=== PATIENT | female | born 1955 | race Caucasian/White ===

== ENCOUNTER 2023-05-18 19:50 | Inpatient (IN) | payer MEDICARE, MEDICAID ==
[~2023-05-18] VITALS: Ht 157 cm; Wt 76.2 kg
[~2023-05-18 19:50] MED LIST: ASP81TEC PO; ATEN25TA; CHOLESTROL MED; CIPR500T5 PO; CLON0.5T4 PO; DICL75TA2 PO; FLUT16SP22 NS; HYDR1TAB PO; LEVO100T7 PO; LEVO500T2 PO; LISI1TAB44 PO; LISI1TAB48 PO; MESA800T PO; METR-145 PO; METR500T PO; NAPR550T PO; ONDN4T PO; ORPH100T PO; PANT40TA2 PO; PRAV40TA2 PO; PROM25TA14 PO
[2023-05-18 20:29] LABS: BASOPHILS # (AUTO) 0.1 10^3/uL (0.0-0.1); BASOPHILS % (AUTO) 0 % (0-10); EOSINOPHILS % (AUTO) 0 % (0-10); HEMATOCRIT 42 % (35-52); HEMOGLOBIN 15.1 g/dL (11.5-16.0); LYMPHOCYTES # (AUTO) 0.8 10^3/uL (1.0-4.0); LYMPHOCYTES % (AUTO) 5 % (12-44); MEAN CORPUSCULAR HEMOGLOBIN 34 pg (25-34); MEAN CORPUSCULAR HGB CONC 36 g/dL (32-36); MEAN CORPUSCULAR VOLUME 94 fL (80-99); MEAN PLATELET VOLUME 9.6 fL (9.0-12.2); MONOCYTES % (AUTO) 6 % (0-12); NEUTROPHILS # (AUTO) 15.5 10^3/uL (1.8-7.8); NEUTROPHILS % (AUTO) 89 % (42-75); PLATELET COUNT 297 10^3/uL (130-400); WHITE BLOOD COUNT 17.4 10^3/uL (4.3-11.0)
[2023-05-18] MEDS ORDERED: LACTATED RINGERS 1,000 ML 1,000 ML IV ONE (20:30)
[2023-05-18] MEDS ORDERED: ONDANSETRON INJECTION 4 MG/2 ML (SDV) IVP ONE (20:30)
[2023-05-18 20:53] LABS: BAND NEUTROPHILS 1 %; EOSINOPHILS % (MANUAL) 1 %; LYMPHOCYTES % (MANUAL) 7 %; MONOCYTES % (MANUAL) 5 %; NEUTROPHILS % (MANUAL) 86 %
[2023-05-18 20:54] LABS: ALANINE AMINOTRANSFERASE 24 U/L (0-55); ALBUMIN 4.1 GM/DL (3.2-4.5); ALKALINE PHOSPHATASE 66 U/L (40-136); AMYLASE 162 U/L (25-125); BILIRUBIN,TOTAL 0.6 MG/DL (0.1-1.0); BUN/CREATININE RATIO 13; CALCIUM 9.2 MG/DL (8.5-10.1); CARBON DIOXIDE 22 MMOL/L (21-32); CHLORIDE 102 MMOL/L (98-107); CREATININE SERUM 0.75 MG/DL (0.60-1.30); GFR ESTIMATED 87; GLUCOSE 167 MG/DL (70-105); LIPASE 30 U/L (8-78); MAGNESIUM 2.3 MG/DL (1.6-2.4); PLATELET ESTIMATE ADEQUATE; RBC MORPH NORMAL; SODIUM 134 MMOL/L (135-145); TOTAL PROTEIN 6.7 GM/DL (6.4-8.2)
[2023-05-18 20:56] LABS: POTASSIUM 2.4 MMOL/L (3.6-5.0)
[2023-05-18] MEDS ORDERED: D5 1/2NS + KCL 40 MEQ/L 1000ML 1,000 ML IV SCH (21:00)
--- NOTE | 2023-05-18 21:08 | ED GI ---
General Chief Complaint: Abdominal/GI Problems Stated Complaint: ABDOMINAL PAIN VOMITING Nursing Triage Note: TO ED VIA POV AND AMBULATORY TO ROOM 7. PT STATES, "I HAVE SHIT RUNNING DOWN MY LEG. I NEED A BLANKET I'M COLD". PT AMBULATES INTO ROOM AND THROWS HERSELF DOWN ON THE BED. PT STATES, "THEY TOLD ME I HAVE GASTROENTERITIS, BUT I'M JUST NOT BETTER!" PT IS VERY DIFFICULT TO ANSWER QUESTIONS. AFTER MUTLIPLE TIMES ASKING PT FINALLY REVEALED SHE WENT TO [facility] A WEEK AGO. PT ASKED IF SHE HAD TAKEN ANYTHING FOR N/V/D AND STATES, "YEAH I TOOK SOMETHING". PT STATES MULTIPLE TIMES THROUGH TRIAGE, "I SHIT MYSELF". MALE VISITOR IN ROOM ATTEMPTING TO ANSWER QUESTIONS AND BEGINNING TO BE VERBALLY AGGRESSIVE. VISITOR WAS ASKED TO LEAVE AND HE STATED, "YOU'RE A BITCH". PT CONTINUED TO BE DIFFICULT HISTORIAN AND HAS TO BE ASKED MULTIPLE TIMES FOR MEDICAL INFORMATION AND HEALTH HX WELL CURRENT COMPLAINTS. REGISTRATION WAS NOTIFIED MALE VISITOR WOULD NOT BE ALLOWED BACK INTO ER. Source of Information: Patient History of Present Illness Date Seen by Provider: May 18, 2023 Time Seen by Provider: 20:07 Allergies and Home Medications Allergies Coded Allergies: No Known Drug Allergies (Unverified , 07/17/16) Patient Home Medication List Aspirin (Aspirin Ec 81 Mg) 81 Mg Tabec, 81 MG PO HS, (Reported) Entered as Reported by: VIN TORRES on 12/26/09 0937 Clonazepam (Clonazepam) 0.5 Mg Tablet, 0.5 MG PO BID PRN for ANXIETY, (Reported) Entered as Reported by: JORGE MCCARTHY on 07/17/16 1248 Fluticasone Propionate (Fluticasone Propionate) 16 Gm [place].susp, 1 SPRAY NS BID PRN for ALLERGIES, (Reported) Entered as Reported by: JORGE MCCARTHY on 07/17/16 1248 Levothyroxine Sodium (Levothyroxine Sodium) 100 Mcg Tablet, 100 MCG PO DAILY, (Reported) Entered as Reported by: JORGE MCCARTHY on 07/17/16 1248 Lisinopril/Hydrochlorothiazide (Lisinopril-Hctz 10-12.5 mg Tab) 1 Each Tablet, 1 TAB PO DAILY, (Reported) Entered as Reported by: JORGE MCCARTHY on 07/17/16 1251 Mesalamine (Asacol Hd) 800 Mg Tablet.dr, 800 MG PO TID Prescribed by: TANIA GASTELUM on 08/11/16 1136 Ondansetron HCl (Zofran) 4 Mg Tab, 4 MG PO BID PRN for NAUSEA, (Reported) Entered as Reported by: KENDRICK LR on 07/31/16 1420 Pantoprazole Sodium (Protonix) 40 Mg Tablet.dr, 40 MG PO BID Prescribed by: MISAEL GOODEN on 08/01/16 1429 Pravastatin Sodium (Pravastatin Sodium) 40 Mg Tablet, 40 MG PO HS, (Reported) Entered as Reported by: JORGE MCCARTHY on 07/17/16 1248 Promethazine HCl (Promethazine Tablet) 25 Mg Tablet, 25 MG PO Q6H PRN for NAUSEA/VOMITING Prescribed by: JOSE M CAMEJO on 07/31/16 1244 Past Coanhgu-Rieywh-Arqtgn Hx Seasonal Allergies Seasonal Allergies: No Past Medical History Section, Hysterectomy High Cholesterol, Hypertension Reproductive Disorders: No Sexually Transmitted Disease: No Chronic Diarrhea Arthritis Hypothyroidsim Family Medical History Hypertension No Pertinent Family Hx Physical Exam Vital Signs Vital Signs - First Documented 05/18/23 20:09 Temp 36.6 Pulse 56 Resp 16 B/P (MAP) 136/87 (103) Pulse Ox 96 O2 Delivery Room Air Capillary Refill : Less Than 3 Seconds Height/Weight/BMI Height: 5'2.00" Weight: 182lbs. 0.0oz. 82.611868pc; 33.3 BMI Method:Stated Focused Exam Lactate Level 05/18/23 21:13: Lactic Acid Level 2.25*H Lactic Acid Level Laboratory Tests Test 05/18/23 21:13 Lactic Acid Level 2.25 MMOL/L (0.50-2.00) *H Progress/Results/Core Measures Results/Orders Lab Results Laboratory Tests Test 05/18/23 20:15 05/18/23 21:13 Range/Units White Blood Count 17.4 H 4.3-11.0 10^3/uL Red Blood Count 4.44 3.80-5.11 10^6/uL Hemoglobin 15.1 11.5-16.0 g/dL Hematocrit 42 35-52 % Mean Corpuscular Volume 94 80-99 fL Mean Corpuscular Hemoglobin 34 25-34 pg Mean Corpuscular Hemoglobin Concent 36 32-36 g/dL Red Cell Distribution Width 12.0 10.0-14.5 % Platelet Count 297 130-400 10^3/uL Mean Platelet Volume 9.6 9.0-12.2 fL Immature Granulocyte % (Auto) 0 % Neutrophils (%) (Auto) 89 H 42-75 % Lymphocytes (%) (Auto) 5 L 12-44 % Monocytes (%) (Auto) 6 0-12 % Eosinophils (%) (Auto) 0 0-10 % Basophils (%) (Auto) 0 0-10 % Neutrophils # (Auto) 15.5 H 1.8-7.8 10^3/uL Lymphocytes # (Auto) 0.8 L 1.0-4.0 10^3/uL Monocytes # (Auto) 1.0 0.0-1.0 10^3/uL Eosinophils # (Auto) 0.0 0.0-0.3 10^3/uL Basophils # (Auto) 0.1 0.0-0.1 10^3/uL Immature Granulocyte # (Auto) 0.1 0.0-0.1 10^3/uL Neutrophils % (Manual) 86 % Lymphocytes % (Manual) 7 % Monocytes % (Manual) 5 % Eosinophils % (Manual) 1 % Band Neutrophils 1 % Platelet Estimate ADEQUATE Blood Morphology Comment NORMAL Sodium Level 134 L 135-145 MMOL/L Potassium Level 2.4 *L 3.6-5.0 MMOL/L Chloride Level 102 98-107 MMOL/L Carbon Dioxide Level 22 21-32 MMOL/L Anion Gap 10 5-14 MMOL/L Blood Urea Nitrogen 10 7-18 MG/DL Creatinine 0.75 0.60-1.30 MG/DL Estimat Glomerular Filtration Rate 87 BUN/Creatinine Ratio 13 Glucose Level 167 H 70-105 MG/DL Calcium Level 9.2 8.5-10.1 MG/DL Corrected Calcium 9.1 8.5-10.1 MG/DL Magnesium Level 2.3 1.6-2.4 MG/DL Total Bilirubin 0.6 0.1-1.0 MG/DL Aspartate Amino Transf (AST/SGOT) 17 5-34 U/L Alanine Aminotransferase (ALT/SGPT) 24 0-55 U/L Alkaline Phosphatase 66 40-136 U/L Total Protein 6.7 6.4-8.2 GM/DL Albumin 4.1 3.2-4.5 GM/DL Amylase Level 162 H 25-125 U/L Lipase 30 8-78 U/L Serum Alcohol < 10 <10 MG/DL Influenza Type A (RT-PCR) Not Detected Not Detecte Influenza Type B (RT-PCR) Not Detected Not Detecte SARS-CoV-2 RNA (RT-PCR) Not Detected Not Detecte Lactic Acid Level 2.25 *H 0.50-2.00 MMOL/L My Orders Orders - HEMA JENNINGS DO Ed Iv/Invasive Line Start (05/18/23 20:08) Ekg Tracing (05/18/23 20:08) Monitor-Rhythm Ecg Trace Only (05/18/23 20:08) Amylase (05/18/23 20:08) Cbc With Automated Diff (05/18/23 20:08) Comprehensive Metabolic Panel (05/18/23 20:08) Lipase (05/18/23 20:08) Magnesium (05/18/23 20:08) Ua Culture If Indicated (05/18/23 20:08) Covid 19 Inhouse Test (05/18/23 20:18) Influenza A And B By Pcr (05/18/23 20:18) Alcohol (05/18/23 20:18) Drug Screen Stat (Urine) (05/18/23 20:18) Stool Culture (05/18/23 20:18) Fecal Wbc (05/18/23 20:18) C Difficile Ag + Toxin A/B. (05/18/23 20:18) Occult Blood Stool (05/18/23 20:18) Ed Iv/Invasive Line Start (05/18/23 20:18) Lactated Ringers 1,000 Ml (Lactated Ring (05/18/23 20:30) Ondansetron Injection (Ondansetron Inj (05/18/23 20:30) Manual Differential (05/18/23 20:15) Ct Abdomen/Pelvis W (05/18/23 20:58) Lactic Acid Analyzer (05/18/23 20:58) Blood Culture (05/18/23 20:58) D5 1/2ns + Kcl 40 Meq/L 1000ml (Dextrose (05/18/23 21:00) Iohexol Injection (Omnipaque 350 Mg/Ml 1 (05/18/23 21:45) Ns (Ivpb) 100 Ml (Sodium Chloride 0.9% 1 (05/18/23 21:45) Metoclopramide Injection (Metoclopramide (05/18/23 21:45) Diphenhydramine Injection (Diphenhydram (05/18/23 21:45) Straight Cath For Spec.-Adult (05/18/23 22:01) Ciprofloxacin Iv 400mg/200ml (Ciprofloxa (05/18/23 22:15) Metronidazole 500mg/100ml Ivpb (Metronid (05/18/23 22:15) Medications Given in ED Current Medications Medications Dose Ordered Sig/Analia Route Start Time Stop Time Status Last Admin Dose Admin Diphenhydramine HCl 50 mg ONCE ONCE IVP 05/18/23 21:45 05/18/23 21:46 DC 05/18/23 21:43 50 MG Iohexol 100 ml ONCE ONCE IV 05/18/23 21:45 05/18/23 21:46 DC 05/18/23 21:39 80 ML Lactated Ringer's 1,000 ml @ 0 mls/hr Q0M ONCE IV 05/18/23 20:30 05/18/23 20:31 DC 05/18/23 20:34 0 MLS/HR Metoclopramide HCl 10 mg ONCE ONCE IVP 05/18/23 21:45 05/18/23 21:46 DC 05/18/23 21:42 10 MG Ondansetron HCl 4 mg ONCE ONCE IVP 05/18/23 20:30 05/18/23 20:31 DC 05/18/23 20:34 4 MG Sodium Chloride 100 ml ONCE ONCE IV 05/18/23 21:45 05/18/23 21:46 DC 05/18/23 21:39 80 ML Vital Signs/I&O 05/18/23 20:09 Temp 36.6 Pulse 56 Resp 16 B/P (MAP) 136/87 (103) Pulse Ox 96 O2 Delivery Room Air Blood Pressure Mean: 103 Departure Communication (Admissions) 1388--SPOKE WITH DR. GOODEN, HOSPITALIST FOR [facility]. ACCEPTS PT FOR ADMIT Impression Primary Impression: Colitis presumed infectious Additional Impressions: Gastroenteritis SIRS (systemic inflammatory response syndrome) Hypokalemia Disposition: ADMITTED INPATIENT Condition: Stable Admissions Decision to Admit Reason: Admit from ER (General) Decision to Admit/Date: May 18, 2023 Time/Decision to Admit Time: 21:55 Departure-Patient Inst. Referrals: [facility] (PCP/Family) Primary Care Physician HEMA JENNINGS DO May 18, 2023 21:08
[2023-05-18] MEDS ORDERED: diphenhydrAMINE INJ 50 MG/ML VIAL IVP ONE (21:45)
[2023-05-18] MEDS ORDERED: METOCLOPRAMIDE INJ 10 MG/2 ML IVP ONE (21:45)
[2023-05-18] MEDS ORDERED: NS 100 ML (IVPB) BAG IV ONE (21:45)
[2023-05-18] MEDS ORDERED: IOHEXOL 350 MG/ML 100 ML (OMNIPAQUE 350) VIAL IV ONE (21:45)
--- NOTE | 2023-05-18 21:47 | Diagnostic Imaging Report ---
EXAMINATION: CT abdomen and pelvis with intravenous contrast. TECHNIQUE: Multiple contiguous axial images were obtained through the abdomen and pelvis after the uneventful administration of intravenous contrast. All CT scans use one or more of the following dose optimizing techniques: automated exposure control, MA and/or KvP adjustment based on patient size and exam type or iterative reconstruction. HISTORY: Abdominal pain. COMPARISON: 07/31/2016 FINDINGS: Limited views of the lower thorax are unremarkable. The liver is normal without focal lesion. There is no biliary ductal dilation. There is a stone in the gallbladder. No wall thickening or pericholecystic fluid. Pancreas is normal. Spleen is normal. Adrenal glands are normal. The kidneys are normal. There is no hydronephrosis. Urinary bladder is normal. There is wall thickening of the descending colon. There is a small amount of free fluid. No obstruction. No free air. No abdominal or pelvic lymphadenopathy. Aorta is normal in caliber without aneurysm. There are no suspicious osseus lesions. IMPRESSION: 1. Wall thickening of the descending colon with a small amount of free fluid in keeping with colitis. Dictated by: Dictated on workstation # [id number]
[2023-05-18] MEDS ORDERED: CIPROFLOXACIN IV 400MG/200ML 200 ML IV ONE (22:15)
[2023-05-18] MEDS ORDERED: metroNIDAZOLE 500MG/100ML IVPB 100 ML IV ONE (22:15)
[2023-05-18 23:28] VITALS: BP 163/75
[2023-05-18] MEDS ORDERED: diphenhydrAMINE INJ 50 MG/ML VIAL IV PRN (23:45)
[2023-05-18] MEDS ORDERED: POTASSIUM CHLORIDE INJ 40 MEQ in D5 NS 1,000 ML IV SOLN 1,000 ML IV SCH (23:45)
[2023-05-18] MEDS ORDERED: METOCLOPRAMIDE INJ 10 MG/2 ML IV PRN (23:45)
[2023-05-19 00:20] LABS: CLARITY,URINE CLEAR; COLOR,URINE YELLOW; GLUCOSE, URINE (UA) 3+ (NEGATIVE); KETONES,URINE NEGATIVE (NEGATIVE); PROTEIN,URINE NEGATIVE (NEGATIVE)
[2023-05-19 00:21] LABS: BACTERIA,URINE FEW /HPF; BILIRUBIN,URINE NEGATIVE (NEGATIVE); LEUKOCYTE ESTERASE ,URINE NEGATIVE (NEGATIVE); NITRITE,URINE POSITIVE (NEGATIVE); SQUAMOUS EPITHELIAL CELL,UR 0-2 /HPF; WBC,URINE 0-2 /HPF
[2023-05-19 00:26] LABS: AMPHETAMINE SCREEN, URINE NEGATIVE (NEGATIVE); BENZODIAZEPINES SCREEN URINE NEGATIVE (NEGATIVE); CANNABINOID SCREEN, URINE POSITIVE (NEGATIVE); COCAINE SCREEN URINE NEGATIVE (NEGATIVE); OPIATE SCREEN URINE NEGATIVE (NEGATIVE)
[2023-05-19 00:27] LABS: BARBITURATE SCREEN URINE NEGATIVE (NEGATIVE); METHADONE STAT NEGATIVE (NEGATIVE); OXYCODONE STAT NEGATIVE (NEGATIVE); PROPOXYPHENE STAT NEGATIVE (NEGATIVE); TRICYCLIC ANTIDEPRESSANTS SCRE NEGATIVE (NEGATIVE)
[2023-05-19] MEDS: D5 1/2NS + KCL 40 MEQ/L 1000ML 1,000 ML IV SCH ×3 (00:55→10:27)
[2023-05-19 03:26] LABS: BASOPHILS # (AUTO) 0.1 10^3/uL (0.0-0.1); BASOPHILS % (AUTO) 0 % (0-10); EOSINOPHILS % (AUTO) 0 % (0-10); HEMATOCRIT 38 % (35-52); LYMPHOCYTES % (AUTO) 5 % (12-44); MEAN CORPUSCULAR HEMOGLOBIN 34 pg (25-34); MEAN CORPUSCULAR HGB CONC 37 g/dL (32-36); MEAN CORPUSCULAR VOLUME 93 fL (80-99); MEAN PLATELET VOLUME 9.5 fL (9.0-12.2); MONOCYTES # (AUTO) 1.7 10^3/uL (0.0-1.0); MONOCYTES % (AUTO) 9 % (0-12); NEUTROPHILS # (AUTO) 16.3 10^3/uL (1.8-7.8); NEUTROPHILS % (AUTO) 85 % (42-75); PLATELET COUNT 243 10^3/uL (130-400); WHITE BLOOD COUNT 19.2 10^3/uL (4.3-11.0)
[2023-05-19 03:30] VITALS: BP 164/71
[2023-05-19 03:35] LABS: ALBUMIN 3.6 GM/DL (3.2-4.5)
[2023-05-19 03:37] LABS: CALCIUM 8.6 MG/DL (8.5-10.1)
[2023-05-19 03:40] LABS: BILIRUBIN,TOTAL 0.8 MG/DL (0.1-1.0)
[2023-05-19 03:41] LABS: CREATININE SERUM 0.69 MG/DL (0.60-1.30)
[2023-05-19] MEDS: fentaNYL INJECTION 100 MCG/2 ML VIAL IV PRN ×2 (04:51→08:11)
[2023-05-19] MEDS: metroNIDAZOLE 500 MG/100 ML IVPB (PRE-MIX) IV SCH ×3 (05:17→21:28)
[2023-05-19 07:30] VITALS: BP 103/58
[2023-05-19] MEDS: PANTOPRAZOLE INJECTION 40 MG VIAL IV SCH (08:11)
[2023-05-19] MEDS: CIPROFLOXACIN IV 400MG/200ML 200 ML IV SCH ×2 (10:42→23:23)
[2023-05-19] MEDS ORDERED: POTASSIUM CL 10MEQ/50ML IVPB 50 ML IV SCH ×2 (11:15→12:30)
[2023-05-19 12:00] VITALS: BP 109/69
[2023-05-19] MEDS ORDERED: D5 1/2NS + KCL 40 MEQ/L 1000ML 1,000 ML IV SCH (12:15)
[2023-05-19] MEDS: POTASSIUM CL 10MEQ/50ML IVPB 50 ML IV SCH ×2 (12:29→14:17)
--- NOTE | 2023-05-19 13:25 | History & Physical ---
MEIR VENEGAS 05/19/23 1325: History of Present Illness History of Present Illness Reason for visit/HPI Erica Butt is a 67 y/o female with a one week history of N/V was seen at [facility] in [place] last week, was prescribed some zofran for the N/V which she reports helping for a couple days. She reports that the N/V worsened yesterday and she started having uncontrollable diarrhea. States her stomach and RLQ have been hurting more this week. Reports that she did not eat any new foods in the past week, denies fever, states she did have one instance of chills in the past week. Reports some black stools, but only after taking peto-bismol, which helped a little with the Abd pain. Denies SOB chest pain. She reports that she had previously been taking protonix but stopped taking it awhile ago because she did not find it necessary anymore. Last Colonoscopy/ endoscopy was in 2016- one pectic ulcer seen, some signs of colonic inflammation. Date of Admission May 18, 2023 at 22:21 Date Seen by a Provider: May 19, 2023 Time Seen by a Provider: 10:00 I consulted on this patient on 05/19/23 13:16 Attending Physician Alma Osheabus - [facility] Gooden Admitting Physician Admitting Physician: Misael Gooden MD Attending Physician: Misael Gooden MD Consult Allergies and Home Medications Allergies Coded Allergies: No Known Drug Allergies (Unverified , 07/17/16) Patient Home Medication List Home Medication List Reviewed: Yes Fluticasone Propionate (Flonase Allergy Relief) 50 Mcg/Actuation [place].susp, 1-2 SPRAY NSEACH DAILY PRN for CONGESTION, (Reported) Entered as Reported by: BERNARDINO HOLLOWAY on 05/19/231537 Last Action: Reviewed Folic Acid (Folic Acid) 1 Mg Tablet, 1 MG PO BECKMAN,MO,TU,TH,FR,SA, (Reported) Entered as Reported by: BERNARDINO HOLLOWAY on 05/19/231537 Last Action: Reviewed Levothyroxine Sodium (Levothyroxine Sodium) 112 Mcg Tablet, 112 MCG PO DAILY, (Reported) Entered as Reported by: BERNARDINO HOLLOWAY on 05/19/231537 Last Action: Continued Lisinopril/Hydrochlorothiazide (Lisinopril-Hctz 10-12.5 mg Tab) 10 Mg-12.5 Mg Tablet, 1 EA PO DAILY, (Reported) Entered as Reported by: JORGE MCCARTHY on 07/17/16 1251 Last Action: Reviewed Meloxicam (Meloxicam) 15 Mg Tablet, 15 MG PO DAILY, (Reported) Entered as Reported by: BERNARDINO HOLLOWAY on 05/19/231537 Last Action: Reviewed Methotrexate Sodium (Methotrexate) 2.5 Mg Tablet, 15 MG PO WED, (Reported) Entered as Reported by: BERNARDINO HOLLOWAY on 05/19/231537 Last Action: Reviewed Omeprazole Magnesium (Prilosec Otc) 20 Mg Tablet.dr, 20 MG PO DAILY PRN for HEARTBURN, (Reported) Entered as Reported by: BERNARDINO HOLLOWAY on 05/19/231537 Last Action: Reviewed Pravastatin Sodium (Pravastatin Sodium) 20 Mg Tablet, 20 MG PO DAILY, (Reported) Entered as Reported by: BERNARDINO HOLLOWAY on 05/19/231537 Last Action: Reviewed Discontinued Medications Aspirin (Aspirin Ec 81 Mg) 81 Mg Tabec, 81 MG PO HS, (Reported) Discontinued Reason: No Longer Taking Entered as Reported by: VIN TORRES on 12/26/09 0937 Last Action: Discontinued Clonazepam (Clonazepam) 0.5 Mg Tablet, 0.5 MG PO BID PRN for ANXIETY, (Reported) Discontinued Reason: No Longer Taking Entered as Reported by: JORGE MCCARTHY on 07/17/161247 Last Action: Discontinued Fluticasone Propionate (Fluticasone Propionate) 16 Gm [place].susp, 1 SPRAY NS BID PRN for ALLERGIES, (Reported) Discontinued Reason: No Longer Taking Entered as Reported by: JORGE MCCARTHY on 07/17/161247 Last Action: Discontinued Levothyroxine Sodium (Levothyroxine Sodium) 100 Mcg Tablet, 100 MCG PO DAILY, (Reported) Discontinued Reason: No Longer Taking Entered as Reported by: JORGE MCCARTHY on 07/17/161247 Last Action: Discontinued Mesalamine (Asacol Hd) 800 Mg Tablet.dr, 800 MG PO TID Discontinued Reason: No Longer Taking Prescribed by: TANIA GASTELUM on 08/11/16 1136 Last Action: Discontinued Ondansetron HCl (Zofran) 4 Mg Tab, 4 MG PO BID PRN for NAUSEA, (Reported) Discontinued Reason: No Longer Taking Entered as Reported by: KENDRICK LR on 07/31/16 1420 Last Action: Discontinued Pantoprazole Sodium (Protonix) 40 Mg Tablet.dr, 40 MG PO BID Discontinued Reason: No Longer Taking Prescribed by: MISAEL GOODEN on 08/01/16 1429 Last Action: Discontinued Pravastatin Sodium (Pravastatin Sodium) 40 Mg Tablet, 40 MG PO HS, (Reported) Discontinued Reason: No Longer Taking Entered as Reported by: JORGE MCCARTHY on 07/17/16 1248 Last Action: Discontinued Promethazine HCl (Promethazine Tablet) 25 Mg Tablet, 25 MG PO Q6H PRN for NAUSEA/VOMITING Discontinued Reason: No Longer Taking Prescribed by: JOSE M CAMEJO on 07/31/16 1244 Last Action: Discontinued Past Ubzzfka-Nqhfwi-Prawsj Hx Patient Social History Tobacco Use?: Yes Tobacco type used: Cigarettes Smoking Status: Current Everyday Smoker Use of E-Cig and/or Vaping dev: Yes E-Cig or Vaping type used: Marijuana Use of E-Cig and/or Vaping Lucio: Light User Substance use?: No Alcohol Use?: No Pt feels they are or have been: No Immunizations Up To Date Date of Influenza Vaccine: Jul 16, 2016 Seasonal Allergies Seasonal Allergies: No Current Status status: No status: No Advance Directives: No Communicates: Verbally Primary Language: Yi Preferred Spoken Language: Yi Is interpretation needed?: No Past Medical History Surgeries: Section, Hysterectomy High Cholesterol, Hypertension Sexually Transmitted Disease: No Chronic Diarrhea Arthritis Hypothyroidsim PMHx: Hypothyroidism Hypertension Hyperlipidemia Arthritis PSurgHx: C section x 2 Hysterectomy Family Medical History Hypertension No Pertinent Family Hx Review of Systems Constitutional: see HPI Cardiovascular: No chest pain; other (Lightheadness with position change ) Gastrointestinal: RLQ, see HPI, abdominal pain (RLQ), diarrhea Genitourinary: no symptoms reported; No decreased output, No dysuria, No frequency; hesitancy; No incontinence, No nocturia, No pain : No Control/STD Prophylaxis: Other Musculoskeletal: see HPI Skin: no symptoms reported Psychiatric/Neurological: See HPI All Other Systems Reviewed Negative Unless Noted: Yes Physical Exam Vital Signs Vital Signs - First Documented 05/18/23 20:09 Temp 36.6 Pulse 56 Resp 16 B/P (MAP) 136/87 (103) Pulse Ox 96 O2 Delivery Room Air Capillary Refill : Less Than 3 Seconds Height, Weight, BMI Height: 5'2.00" Weight: 182lbs. 0.0oz. 82.675452bu; 30.91 BMI Method:Stated General Appearance: No Apparent Distress Eyes: Bilateral Eye Normal Inspection HEENT: Moist Mucous Membranes Neck: Normal Inspection, Supple Respiratory: Chest Non Tender, Lungs Clear, Normal Breath Sounds, No Respiratory Distress Cardiovascular: Regular Rate, Rhythm, No Edema, No Murmur, Normal Peripheral Pulses Gastrointestinal: Normal Bowel Sounds; No Rebound; Tenderness (deep palaption RLQ) Extremity: Normal Capillary Refill Neurologic/Psychiatric: Alert, Oriented x3, No Motor/Sensory Deficits, Normal Mood/Affect Skin: Normal Color, Warm/Dry Lymphatic: No Adenopathy Assessment/Plan Assessment and Plan Bacteremia -BC 05/18 Pos for Gram neg rods -UC pos for Gram neg rods. - Afebrile -WBC 05/18 17.4 -> 05/19 19.2 -C.Diff Neg - Started Metro and Cipro 05/18 PLAN > Continue ABX > F/U on sensitives > advance diet as tolerated Hpokalemia 2.4 05/18-> 3.0 05/19 Plan > Replace > BID BMP DVT PPX- lovenox Problems: (1) Hypokalemia Status: Acute (2) Colitis presumed infectious Status: Acute (3) SIRS (systemic inflammatory response syndrome) Status: Acute (4) Gastroenteritis Status: Acute (5) Bacteremia Admission Diagnosis Admission Status: Inpatient Order (span 2 midnights) (bacteremia ) MISAEL GOODEN MD 05/19/23 180: Allergies and Home Medications Allergies Coded Allergies: No Known Drug Allergies (Unverified , 07/17/16) Patient Home Medication List Home Medication List Reviewed: Yes Fluticasone Propionate (Flonase Allergy Relief) 50 Mcg/Actuation [place].susp, 1-2 SPRAY NSEACH DAILY PRN for CONGESTION, (Reported) Entered as Reported by: BERNARDINO HOLLOWAY on 05/19/23 5265 Last Action: Reviewed Folic Acid (Folic Acid) 1 Mg Tablet, 1 MG PO BECK[place],MO,TU,TH,FR,SA, (Reported) Entered as Reported by: BERNARDINO HOLLOWAY on 05/19/231537 Last Action: Reviewed Levothyroxine Sodium (Levothyroxine Sodium) 112 Mcg Tablet, 112 MCG PO DAILY, (Reported) Entered as Reported by: BERNARDINO HOLLOWAY on 05/19/231537 Last Action: Continued Lisinopril/Hydrochlorothiazide (Lisinopril-Hctz 10-12.5 mg Tab) 10 Mg-12.5 Mg Tablet, 1 EA PO DAILY, (Reported) Entered as Reported by: JORGE MCCARTHY on 07/17/16 125 Last Action: Reviewed Meloxicam (Meloxicam) 15 Mg Tablet, 15 MG PO DAILY, (Reported) Entered as Reported by: BERNARDINO HOLLOWAY on 05/19/231537 Last Action: Reviewed Methotrexate Sodium (Methotrexate) 2.5 Mg Tablet, 15 MG PO WED, (Reported) Entered as Reported by: BERNARDINO HOLLOWAY on 05/19/231537 Last Action: Reviewed Omeprazole Magnesium (Prilosec Otc) 20 Mg Tablet.dr, 20 MG PO DAILY PRN for HEARTBURN, (Reported) Entered as Reported by: BERNARDINO HOLLOWAY on 05/19/231537 Last Action: Reviewed Pravastatin Sodium (Pravastatin Sodium) 20 Mg Tablet, 20 MG PO DAILY, (Reported) Entered as Reported by: BERNARDINO HOLLOWAY on 05/19/231537 Last Action: Reviewed Discontinued Medications Aspirin (Aspirin Ec 81 Mg) 81 Mg Tabec, 81 MG PO HS, (Reported) Discontinued Reason: No Longer Taking Entered as Reported by: VIN TORRES on 12/26/09 0937 Last Action: Discontinued Clonazepam (Clonazepam) 0.5 Mg Tablet, 0.5 MG PO BID PRN for ANXIETY, (Reported) Discontinued Reason: No Longer Taking Entered as Reported by: JORGE MCCARTHY on 07/17/161247 Last Action: Discontinued Fluticasone Propionate (Fluticasone Propionate) 16 Gm [place].susp, 1 SPRAY NS BID PRN for ALLERGIES, (Reported) Discontinued Reason: No Longer Taking Entered as Reported by: JORGE MCCARTHY on 07/17/161247 Last Action: Discontinued Levothyroxine Sodium (Levothyroxine Sodium) 100 Mcg Tablet, 100 MCG PO DAILY, (Reported) Discontinued Reason: No Longer Taking Entered as Reported by: JORGE MCCARTHY on 10/27/16 1248 Last Action: Discontinued Mesalamine (Asacol Hd) 800 Mg Tablet.dr, 800 MG PO TID Discontinued Reason: No Longer Taking Prescribed by: TANIA GASTELUM on 08/11/16 1136 Last Action: Discontinued Ondansetron HCl (Zofran) 4 Mg Tab, 4 MG PO BID PRN for NAUSEA, (Reported) Discontinued Reason: No Longer Taking Entered as Reported by: KENDRICK LR on 07/31/16 1420 Last Action: Discontinued Pantoprazole Sodium (Protonix) 40 Mg Tablet.dr, 40 MG PO BID Discontinued Reason: No Longer Taking Prescribed by: MISAEL GOODEN on 08/01/16 1429 Last Action: Discontinued Pravastatin Sodium (Pravastatin Sodium) 40 Mg Tablet, 40 MG PO HS, (Reported) Discontinued Reason: No Longer Taking Entered as Reported by: JORGE MCCARTHY on 07/17/16 1248 Last Action: Discontinued Promethazine HCl (Promethazine Tablet) 25 Mg Tablet, 25 MG PO Q6H PRN for NAUSEA/VOMITING Discontinued Reason: No Longer Taking Prescribed by: JOSE M CAMEJO on 07/31/16 1244 Last Action: Discontinued Past Wiuavlm-Dyxfpk-Wzojez Hx Patient Social History Living Status: Lives at home with spouse independent with ADLs Family Medical History Hypertension Review of Systems Constitutional: No chills, No fever; malaise EENTM: no symptoms reported Respiratory: no symptoms reported; No cough, No dyspnea on exertion, No short of breath Cardiovascular: no symptoms reported; No chest pain, No edema, No palpitations Gastrointestinal: abdominal pain (RLQ), diarrhea, loss of appetite, nausea, vomiting Genitourinary: No dysuria, No frequency; hesitancy Musculoskeletal: no symptoms reported Skin: no symptoms reported Psychiatric/Neurological: No Symptoms Reported Physical Exam General Appearance: No Apparent Distress, WD/WN HEENT: PERRL/EOMI Neck: Full Range of Motion, Normal Inspection, Supple Respiratory: Chest Non Tender, Lungs Clear, Normal Breath Sounds, No Respiratory Distress Cardiovascular: Regular Rate, Rhythm, No Edema, No Murmur Gastrointestinal: Normal Bowel Sounds, Soft; No Distended, No Guarding, No Rebound; Tenderness (deep palaption RLQ) Back: No CVA Tenderness, No Vertebral Tenderness Extremity: Normal Capillary Refill, Non Tender, No Calf Tenderness, No Pedal Edema Neurologic/Psychiatric: Alert, Oriented x3, No Motor/Sensory Deficits, Normal Mood/Affect Skin: Normal Color, Warm/Dry Lymphatic: No Adenopathy Assessment/Plan Admission Diagnosis Admission Status: Inpatient Order (span 2 midnights) (bacteremia ) Reason for Inpatient Admission: Failed outpatient treatment and high risk for decompensation Supervisory-Addendum Brief Verification & Attestation Participated in pt care: history, physical Personally performed: exam Care discussed with: Medical Student Procedures: n/a Verification and Attestation of Medical Student E/M Service A medical student performed and documented this service in my presence. I reviewed and verified all information documented by the medical student and made modifications to such information, when appropriate. I personally performed the physical exam and medical decision making. Misael Gooden, May 19, 2023,18:05 Agree with above, in addition Sepsis Colitis likely infectious UTI Bacteremia - IV antibiotics, will advance diet as tolerated, C diff neg N/V - anti emetics, PO challenge later today Hypothyroidism - Continue home meds HTN - Normotensive, will continue to monitor, holding [employer] meds Hypokalemia - Replace and repeat BMP Occult Postive stools - Reviewed path from 2016, recommend outpatient workup MEIR VENEGAS May 19, 2023 13:25 MISAEL GOODEN MD May 19, 2023 18:08
[2023-05-19 15:30] VITALS: BP 137/60
[2023-05-19] MEDS ORDERED: METH2.5T PO (15:38)
[2023-05-19] MEDS ORDERED: LEVO112T55 PO (15:38)
[2023-05-19] MEDS ORDERED: FOLI1TAB33 PO (15:38)
[2023-05-19] MEDS ORDERED: MELO15TA39 PO (15:38)
[2023-05-19] MEDS ORDERED: PRAV20TA3 PO (15:38)
[2023-05-19] MEDS ORDERED: FLUT9.9S NSEACH (15:38)
[2023-05-19] MEDS ORDERED: OMEP20TA33 PO (15:38)
[2023-05-19 17:23] LABS: CALCIUM 8.6 MG/DL (8.5-10.1); CREATININE SERUM 0.75 MG/DL (0.60-1.30); POTASSIUM 3.7 MMOL/L (3.6-5.0)
[2023-05-19 20:40] VITALS: BP 113/53
[2023-05-19] MEDS: NS IV 1000 ML 1,000 ML IV SCH (21:28)
[2023-05-19 23:08] VITALS: BP 118/49
[2023-05-20 03:16] VITALS: BP 118/56
[2023-05-20] MEDS: metroNIDAZOLE 500 MG/100 ML IVPB (PRE-MIX) IV SCH (05:37)
[2023-05-20 05:50] LABS: BASOPHILS # (AUTO) 0.1 10^3/uL (0.0-0.1); BASOPHILS % (AUTO) 1 % (0-10); EOSINOPHILS # (AUTO) 0.3 10^3/uL (0.0-0.3); EOSINOPHILS % (AUTO) 3 % (0-10); HEMATOCRIT 35 % (35-52); HEMOGLOBIN 12.4 g/dL (11.5-16.0); LYMPHOCYTES # (AUTO) 2.2 10^3/uL (1.0-4.0); LYMPHOCYTES % (AUTO) 24 % (12-44); MEAN CORPUSCULAR HEMOGLOBIN 34 pg (25-34); MEAN CORPUSCULAR HGB CONC 35 g/dL (32-36); MEAN CORPUSCULAR VOLUME 96 fL (80-99); MEAN PLATELET VOLUME 9.8 fL (9.0-12.2); MONOCYTES # (AUTO) 0.9 10^3/uL (0.0-1.0); MONOCYTES % (AUTO) 10 % (0-12); NEUTROPHILS # (AUTO) 5.7 10^3/uL (1.8-7.8); NEUTROPHILS % (AUTO) 62 % (42-75); PLATELET COUNT 210 10^3/uL (130-400); WHITE BLOOD COUNT 9.1 10^3/uL (4.3-11.0)
[2023-05-20 06:11] LABS: ALBUMIN 3.1 GM/DL (3.2-4.5); BILIRUBIN,TOTAL 0.5 MG/DL (0.1-1.0); CALCIUM 8.3 MG/DL (8.5-10.1); CREATININE SERUM 0.8 MG/DL (0.60-1.30); POTASSIUM 3.4 MMOL/L (3.6-5.0)
[2023-05-20] MEDS ORDERED: LEVOTHYROXINE 112 MCG TABLET PO SCH (06:30)
[2023-05-20 07:50] VITALS: BP 139/67
[2023-05-20] MEDS: PANTOPRAZOLE INJECTION 40 MG VIAL IV SCH (08:01)
[2023-05-20] MEDS: NS IV 1000 ML 1,000 ML IV SCH (10:13)
[2023-05-20] MEDS: CIPROFLOXACIN IV 400MG/200ML 200 ML IV SCH (10:13)
[2023-05-20 11:54] VITALS: BP 157/75
[2023-05-20] MEDS ORDERED: POTASSIUM CHLORIDE 20 MEQ TABLET PO NR (12:30)
--- NOTE | 2023-05-20 12:30 | Discharge Summary ---
Diagnosis/Chief Complaint Date of Admission May 18, 2023 at 22:21 Date of Discharge 05/20/23 Discharge Summary-Simple/Stand Discharge Physical Examination Allergies: Coded Allergies: No Known Drug Allergies (Unverified , 07/17/16) Vitals & I&Os Vital Sign - Last 12Hours Date Time Temp Pulse Resp B/P (MAP) Pulse Ox O2 Delivery O2 Flow Rate FiO2 05/20/23 11:54 36.8 50 18 157/75 (102) 100 Room Air Intake and Output 05/19/23 23:59 Intake Total 1500 ml Balance 1500 ml General Appearance: Alert, Oriented X3, No Acute Distress Respiratory: Clear to Auscultation, Normal Air Movement Cardiovascular: Regular Rate, No Murmurs Abdominal: Normal Bowel Sounds, Soft, Other (mild LLQ ttp, no rebound or guarding) Extremities: No Edema, No Tenderness/Swelling Hospital Course See final discharge diagnosis. Discharge Condition at discharge Stable Instructions to patient/family Please see electronic discharge instructions given to patient. Discharge Medications Reviewed and agree with Discharge Medication list on patient's Discharge Instruction sheet MISAEL GOODEN MD May 20, 2023 12:30
[2023-05-20] MEDS ORDERED: CIPR-225 PO (12:32)
[2023-05-20] MEDS ORDERED: METR-145 PO (12:32)
--- NOTE | 2023-05-20 12:33 | Discharge Summary ---
Discharge [facility] Discharge Medications New, Converted or Re-Newed RX: Transmitted to Pharmacy New Medications: Ciprofloxacin HCl (Cipro) 500 Mg Tablet 500 MG PO BID, #10 TAB Metronidazole (Metronidazole) 500 Mg Tablet 500 MG PO BID, #10 TAB Continued Medications: Fluticasone Propionate (Flonase Allergy Relief) 50 Mcg/Actuation [place].susp 1-2 SPRAY NSEACH DAILY PRN for CONGESTION, EACH Folic Acid (Folic Acid) 1 Mg Tablet 1 MG PO BECKMAN,MO,,TH,FR,SA, TAB Levothyroxine Sodium (Levothyroxine Sodium) 112 Mcg Tablet 112 MCG PO DAILY, TAB Lisinopril/Hydrochlorothiazide (Lisinopril-Hctz 10-12.5 mg Tab) 10 Mg-12.5 Mg Tablet 1 EA PO DAILY, TAB Methotrexate Sodium (Methotrexate) 2.5 Mg Tablet 15 MG PO WED, TAB TAKES 6 (2.5MG) TABS Omeprazole Magnesium (Prilosec Otc) 20 Mg Tablet.dr 20 MG PO DAILY PRN for HEARTBURN, TAB Pravastatin Sodium (Pravastatin Sodium) 20 Mg Tablet 20 MG PO DAILY, TAB Discontinued Medications: Meloxicam (Meloxicam) 15 Mg Tablet 15 MG PO DAILY, TAB Patient Instructions Goal/Follow Up Appt: 1 week with PCP after antibiotics completed Activity & Diet Discharge Diet: Other Diet ([place] diet) Activity as Tolerated: Yes MISAEL GOODEN MD May 20, 2023 12:33
[2023-05-20 13:20] VITALS: BP 157/75
--- NOTE | 2023-05-20 13:30 | Progress Note ---
Subjective Subjective Date Seen by Provider: May 20, 2023 Time Seen by Provider: 12:00 Diarrhea improved, 1 Semi-sold Bm yesterday, reports that her hemorrhoids were a bit worse today and she noticed some blood on the toilet paper. Review of Systems General: No Chills, No Night Sweats; Appetite HEENT: No Head Aches, No Visual Changes Pulmonary: No Dyspnea Cardiovascular: No: Chest Pain, Lt Headedness Gastrointestinal: No: Nausea, Vomiting, Abdominal Pain, Diarrhea, Melena Genitourinary: No Dysuria, No Frequency Musculoskeletal: No: other Neurological: No: Weakness All Other Systems Reviewed All Other Systems Reviewed: Yes Objective Exam Vital Signs Vital Signs Date Time Temp Pulse Resp B/P (MAP) Pulse Ox O2 Delivery O2 Flow Rate FiO2 05/20/23 12:41 50 05/20/23 11:54 36.8 50 18 157/75 (102) 100 Room Air 05/20/23 08:05 Room Air 05/20/23 07:53 48 05/20/23 07:50 36.6 49 18 139/67 (91) 99 Room Air 05/20/23 03:16 36.5 55 16 118/56 (76) 97 Room Air 05/20/23 01:00 51 05/19/23 23:08 37.0 67 16 118/49 (72) 98 Room Air 05/19/23 20:40 36.1 50 16 113/53 (73) 97 Room Air 05/19/23 20:00 Room Air 05/19/23 19:00 56 05/19/23 15:30 37.1 56 17 137/60 (85) 99 Room Air I & O 05/20/23 07:00 Intake Total 1900 ml Balance 1900 ml General Appearance: No Apparent Distress, WD/WN Eyes: Bilateral Eye Normal Inspection HEENT: PERRL/EOMI Neck: Full Range of Motion, Normal Inspection, Supple Respiratory: Chest Non Tender, Lungs Clear, Normal Breath Sounds, No Respiratory Distress Cardiovascular: Regular Rate, Rhythm, No Edema, No Murmur Gastrointestinal: Normal Bowel Sounds, No Organomegaly, No Pulsatile Mass, Non Tender, Soft; No Distended, No Guarding, No Rebound, No Tenderness Rectal: Blood Streaked Stool (per patient report), Hemorrhoids (per patient report) Back: No CVA Tenderness, No Vertebral Tenderness Extremity: Normal Capillary Refill, Non Tender, No Calf Tenderness, No Pedal Edema Neurologic/Psychiatric: Alert, Oriented x3, No Motor/Sensory Deficits, Normal Mood/Affect Skin: Normal Color, Warm/Dry Lymphatic: No Adenopathy Results Lab Laboratory Tests 05/19/23 17:00: Sodium Level 137, Potassium Level 3.7, Chloride Level 107, Carbon Dioxide Level 21, Anion Gap 9, Blood Urea Nitrogen 4L, Creatinine 0.75, Estimat Glomerular Filtration Rate 87, BUN/Creatinine Ratio 5, Glucose Level 94, Calcium Level 8.6 05/20/23 05:38: Sodium Level 140, Potassium Level 3.4L, Chloride Level 113H, Carbon Dioxide Level 19L, Anion Gap 8, Blood Urea Nitrogen 4L, Creatinine 0.80, Estimat Glomerular Filtration Rate 81, BUN/Creatinine Ratio 5, Glucose Level 92, Calcium Level 8.3L, White Blood Count 9.1, Red Blood Count 3.65L, Hemoglobin 12.4, Hematocrit 35, Mean Corpuscular Volume 96, Mean Corpuscular Hemoglobin 34, Mean Corpuscular Hemoglobin Concent 35, Red Cell Distribution Width 12.4, Platelet Count 210, Mean Platelet Volume 9.8, Immature Granulocyte % (Auto) 1, Neutrophils (%) (Auto) 62, Lymphocytes (%) (Auto) 24, Monocytes (%) (Auto) 10, Eosinophils (%) (Auto) 3, Basophils (%) (Auto) 1, Neutrophils # (Auto) 5.7, Lymphocytes # (Auto) 2.2, Monocytes # (Auto) 0.9, Eosinophils # (Auto) 0.3, Basophils # (Auto) 0.1, Immature Granulocyte # (Auto) 0.1, Corrected Calcium 9.0, Total Bilirubin 0.5, Aspartate Amino Transf (AST/SGOT) 10, Alanine Aminotransferase (ALT/SGPT) 16, Alkaline Phosphatase 53, Total Protein 5.0L, Albumin 3.1L Microbiology 05/18/23 Urine Culture - Preliminary, Resulted Gram Negative [place] 05/18/23 Blood Culture - Preliminary, Resulted Gram Negative Bacillus 1 05/18/23 Fecal Leukocyte Stain - Final, Resulted 05/18/23 C. difficile GDH Antigen & Toxins - Final, Resulted 05/18/23 Stool Culture - Preliminary, Resulted Culture In Progress Presumptive Usual Layla Assessment/Plan Assessment/Plan Admission Dx Erica Butt is a 67 female who presented to the [facility] ED due to uncontrollable diarrhea and abd pain. She was found to be bacteremic growing gram negative rods in BC and UC. Bacteremia -BC 05/18 Pos for Gram neg rods -UC pos for Gram neg rods. - Afebrile -WBC 05/18 17.4 -> 05/19 19.2 -> 05/20 9.2 -C.Diff Neg - Started Metro and Cipro 05/18 PLAN > Continue ABX > F/U on sensitives > Tolerating PO intake well, denies any abd pain, states she feels great today > Discharge on PO cipro 500mg BID for 14 days and metro 500mg for 7 days. Hpokalemia 2.4 05/18-> 3.0 05/19 -> 3.4 05/20 Plan > Replace PO 05/20 Dispo- home 05/20 if tollerates PO intake F/u PCP in 7 days DVT PPX- lovenox Claudy Venegas MS4 Admission Status: Observation Problems: (1) Hypokalemia (2) Colitis presumed infectious (3) SIRS (systemic inflammatory response syndrome) (4) Gastroenteritis (5) Bacteremia Admission Dx Bacteremia -BC 05/18 Pos for Gram neg rods -UC pos for Gram neg rods. - Afebrile -WBC 05/18 17.4 -> 05/19 19.2 -C.Diff Neg - Started Metro and Cipro 05/18 PLAN > Continue ABX > F/U on sensitives > advance diet as tolerated Hpokalemia 2.4 05/18-> 3.0 05/19 Plan > Replace > BID BMP DVT PPX- lovenox Final Diagnosis Bacteremia- SIRS hypokalemia Clinical Quality Measures Admission Status Admission Dx Bacteremia -BC 05/18 Pos for Gram neg rods -UC pos for Gram neg rods. - Afebrile -WBC 05/18 17.4 -> 05/19 19.2 -C.Diff Neg - Started Metro and Cipro 05/18 PLAN > Continue ABX > F/U on sensitives > advance diet as tolerated Hpokalemia 2.4 05/18-> 3.0 05/19 Plan > Replace > BID BMP DVT PPX- lovenox CLAUDY VENEGAS May 20, 2023 13:30
== END 2023-05-20 13:40 | disposition home or self-care (01) | DRG 872 ==
LOC: EDUNIT# 19:50 → ER 19:52 → 4TH 22:21
PROVIDERS: ADMIT Family Medicine; ATTEND Family Medicine
DX: A41.9 Sepsis, unspecified organism (principal); A09 Infectious gastroenteritis and colitis, unspecified; N39.0 Urinary tract infection, site not specified; E03.9 Hypothyroidism, unspecified; E87.6 Hypokalemia; I10 Essential (primary) hypertension; M19.90 Unspecified osteoarthritis, unspecified site; E78.00 Pure hypercholesterolemia, unspecified; F17.210 Nicotine dependence, cigarettes, uncomplicated; Z79.82 Long term (current) use of aspirin; Z79.899 Other long term (current) drug therapy; Z20.822 Contact with and (suspected) exposure to COVID-19
CPT/HCPCS: 36415; 51701; 74177; 80048; 80053; 80306; 80320; 81000; 82150; 82274; 83605; 83690; 83735; 85007; 85025; 85027; 87015; 87040; 87045; 87046; 87077; 87088; 87186; 87324; 87449; 87636; 87899; 89055; 93005

== ENCOUNTER 2023-06-22 13:53 | Emergency (ER) | payer MEDICARE, MEDICAID ==
[~2023-06-22] VITALS: Ht 157 cm; Wt 77.0 kg
[~2023-06-22 13:53] MED LIST changes: +CIPR-225 PO; +FLUT9.9S NSEACH; +FOLI1TAB33 PO; +LEVO112T55 PO; +MELO15TA39 PO; +METH2.5T PO; +OMEP20TA33 PO; +PRAV20TA3 PO
[2023-06-22] MEDS ORDERED: fentaNYL INJECTION 100 MCG/2 ML VIAL IVP STA (14:51)
[2023-06-22] MEDS ORDERED: NS IV 1000 ML 1,000 ML IV STA (14:51)
--- NOTE | 2023-06-22 14:54 | ED Abdominal Pain ---
General Chief Complaint: Abdominal/GI Problems Stated Complaint: ABD PAIN Nursing Triage Note: PT TO [facility] 2 BY [facility] WITH C/O ABD PAIN AND VOMITTING SINCEC 0400 THIS AM. PT GIVE 4MG ZOFRAN AND 200ML NS [employer] Source of Information: Patient Exam Limitations: No Limitations History of Present Illness Date Seen by Provider: Jun 22, 2023 Time Seen by Provider: 14:40 Initial Comments That has been going on since about 4 AM this morning. She had an episode similar a couple weeks ago. Here with persistent nausea and vomiting she came in by EMS and they have given 4 of Zofran and she received about 200 mL of IV fluid before the blood backed up in the bag. She is animated and quite active. She admits to smoking marijuana occasionally but describes that is weekly and then seems to indicate near daily. She states that when she gets this that warm showers do help but she cannot stay in the shower forever. She is concerned about pain which is in the epigastric region and seems to be cramping. She has vomiting which is really dry heaving at this point as she has very little out. Denies fever or chills. Denies upper respiratory infection or symptoms. Denies diarrhea or dysuria. Timing/Duration: 12 Hours Severity/Quality: Moderate, Severe Location: Epigastric Radiation: No Radiation Activities at Onset: None Modifying Factors: Worsens With Eating; Improves With Vomiting Associated Symptoms: No Back Pain, No Chest Pain, No Fever/Chills; Nausea/Vomiting; No Swelling/Mass in Abdomen, No Weakness Allergies and Home Medications Allergies Coded Allergies: No Known Drug Allergies (Unverified , 07/17/16) Patient Home Medication List Home Medication List Reviewed: Yes Ciprofloxacin HCl (Cipro) 500 Mg Tablet, 500 MG PO BID Prescribed by: MISAEL GOODEN on 05/20/23 1232 Fluticasone Propionate (Flonase Allergy Relief) 50 Mcg/Actuation [place].susp, 1-2 SPRAY NSEACH DAILY PRN for CONGESTION, (Reported) Entered as Reported by: BERNARDINO HOLLOWAY on 05/19/23 153 Folic Acid (Folic Acid) 1 Mg Tablet, 1 MG PO BECKMAN,MO,TU,TH,FR,SA, (Reported) Entered as Reported by: BERNARDINO HOLLOWAY on 05/19/23 153 Levothyroxine Sodium (Levothyroxine Sodium) 112 Mcg Tablet, 112 MCG PO DAILY, (Reported) Entered as Reported by: BERNARDINO HOLLOWAY on 05/19/23 153 Lisinopril/Hydrochlorothiazide (Lisinopril-Hctz 10-12.5 mg Tab) 10 Mg-12.5 Mg Tablet, 1 EA PO DAILY, (Reported) Entered as Reported by: JORGE MCCARTHY on 07/17/16 1251 Methotrexate Sodium (Methotrexate) 2.5 Mg Tablet, 15 MG PO WED, (Reported) Entered as Reported by: BERNARDINO HOLLOWAY on 05/19/23 153 Metronidazole (Metronidazole) 500 Mg Tablet, 500 MG PO BID Prescribed by: MISAEL GOODEN on 05/20/23 1232 Omeprazole Magnesium (Prilosec Otc) 20 Mg Tablet.dr, 20 MG PO DAILY PRN for HEARTBURN, (Reported) Entered as Reported by: BERNARDINO HOLLOWAY on 05/19/23 153 Pravastatin Sodium (Pravastatin Sodium) 20 Mg Tablet, 20 MG PO DAILY, (Reported) Entered as Reported by: BERNARDINO HOLLOWAY on 05/19/231537 Review of Systems Review of Systems Constitutional: see HPI; No chills, No fever EENTM: No Nose Congestion, No Throat Pain Respiratory: Denies Cough, Denies Shortness of Air Cardiovascular: Denies Chest Pain Gastrointestinal: See HPI Genitourinary: No Symptoms Reported Musculoskeletal: No back pain Psychiatric/Neurological: Anxiety Past [id number]-Tlsyey Hx Patient Social History Tobacco Use?: Yes Tobacco type used: Cigarettes Substance use?: Yes Substance type: Marijuana Alcohol Use?: No Pt feels they are or have been: No Seasonal Allergies Seasonal Allergies: No Past Medical History Surgery/Hospitalization HX: X2, PARTIAL HYSTO Surgeries: Yes Section, Hysterectomy Respiratory: No Cardiac: Yes High Cholesterol, Hypertension Reproductive Disorders: No Sexually Transmitted Disease: No Gastrointestinal: Yes Chronic Diarrhea Musculoskeletal: Yes Arthritis Endocrine: Yes Hypothyroidsim Family Medical History Reviewed Nursing Family Hx Hypertension No Pertinent Family Hx Physical Exam Vital Signs Vital Signs - First Documented 06/22/23 13:53 Temp 37.2 Pulse 69 Resp 16 B/P (MAP) 133/60 (84) Pulse Ox 98 Capillary Refill : Height/Weight/BMI Height: 5'2.00" Weight: 182lbs. 0.0oz. [id number]; 31.00 BMI Method:Stated General Appearance: WD/WN, mild distress HEENT: PERRL/EOMI, pharynx normal Neck: full range of motion, supple Respiratory: lungs clear, normal breath sounds Cardiovascular: regular rate, rhythm, no murmur Gastrointestinal: soft; No guarding, No rebound; tenderness (Epigastric) Extremities: non-tender, normal inspection Back: normal inspection, no CVA tenderness, no vertebral tenderness Neurologic/Psychiatric: alert, oriented x 3 Skin: normal color, warm/dry Progress/Results/Core Measures Results/Orders Lab Results Laboratory Tests Test 06/22/23 14:07 Range/Units White Blood Count 6.2 4.3-11.0 10^3/uL Red Blood Count 3.58 L 3.80-5.11 10^6/uL Hemoglobin 11.9 11.5-16.0 g/dL Hematocrit 35 35-52 % Mean Corpuscular Volume 97 80-99 fL Mean Corpuscular Hemoglobin 33 25-34 pg Mean Corpuscular Hemoglobin Concent 34 32-36 g/dL Red Cell Distribution Width 12.6 10.0-14.5 % Platelet Count 183 130-400 10^3/uL Mean Platelet Volume 10.8 9.0-12.2 fL Immature Granulocyte % (Auto) 0 % Neutrophils (%) (Auto) 87 H 42-75 % Lymphocytes (%) (Auto) 4 L 12-44 % Monocytes (%) (Auto) 9 0-12 % Eosinophils (%) (Auto) 0 0-10 % Basophils (%) (Auto) 1 0-10 % Neutrophils # (Auto) 5.4 1.8-7.8 10^3/uL Lymphocytes # (Auto) 0.2 L 1.0-4.0 10^3/uL Monocytes # (Auto) 0.5 0.0-1.0 10^3/uL Eosinophils # (Auto) 0.0 0.0-0.3 10^3/uL Basophils # (Auto) 0.0 0.0-0.1 10^3/uL Immature Granulocyte # (Auto) 0.0 0.0-0.1 10^3/uL Neutrophils % (Manual) 85 % Lymphocytes % (Manual) 5 % Monocytes % (Manual) 7 % Band Neutrophils 3 % Platelet Estimate ADEQUATE Poikilocytosis SLIGHT Anisocytosis MODERATE Sodium Level 138 135-145 MMOL/L Potassium Level 3.2 L 3.6-5.0 MMOL/L Chloride Level 107 98-107 MMOL/L Carbon Dioxide Level 20 L 21-32 MMOL/L Anion Gap 11 5-14 MMOL/L Blood Urea Nitrogen 8 7-18 MG/DL Creatinine 0.77 0.60-1.30 MG/DL Estimat Glomerular Filtration Rate 84 BUN/Creatinine Ratio 10 Glucose Level 202 H 70-105 MG/DL Calcium Level 8.9 8.5-10.1 MG/DL Corrected Calcium 9.0 8.5-10.1 MG/DL Total Bilirubin 0.3 0.1-1.0 MG/DL Aspartate Amino Transf (AST/SGOT) 15 5-34 U/L Alanine Aminotransferase (ALT/SGPT) 16 0-55 U/L Alkaline Phosphatase 66 40-136 U/L C-Reactive Protein High Sensitivity 1.00 H 0.00-0.50 MG/DL Total Protein 6.8 6.4-8.2 GM/DL Albumin 3.9 3.2-4.5 GM/DL Lipase 31 8-78 U/L My Orders Orders - AYAAN SOTOMAYOR MD Cbc And Automated Diff (06/22/23 14:51) Comprehensive Metabolic Panel (06/22/23 14:51) Hs C Reactive Protein (06/22/23 14:51) Lipase (06/22/23 14:51) Ns Iv 1000 Ml (Ns Iv 1000 Ml) (06/22/23 14:51) Ed Iv/Invasive Line Start (06/22/23 14:51) Fentanyl Injection (Fentanyl Injection (06/22/23 14:51) Droperidol Injection (Ed Only) (Droperid (06/22/23 15:00) Ekg Tracing (06/22/23 14:51) Manual Differential (06/22/23 14:07) Medications Given in ED Current Medications Medications Dose Ordered Sig/Analia Route Start Time Stop Time Status Last Admin Dose Admin Droperidol 1.25 mg ONCE ONCE IV 06/22/23 15:00 06/22/23 15:01 DC 06/22/23 15:19 1.25 MG Vital Signs/I&O 06/22/23 13:53 Temp 37.2 Pulse 69 Resp 16 B/P (MAP) 133/60 (84) Pulse Ox 98 Blood Pressure Mean: 84 Progress Progress Note : Progress Note Seen and evaluated. IV, labs including CBC, CMP, CRP and lipase ordered. Normal saline 1 L bolus. Fentanyl 50 mcg IV. EKG ordered to the rule out significant QT prolongation so that we may give droperidol 1.25 mg IV. I do have concerns about cyclic vomiting syndrome associated with cannabis abuse and this was discussed with the patient. Monitor patient. Differential diagnosis includes acute cannabis associated syndrome of hyperemesis, pancreatitis, liver dysfunction, gastritis, electrolyte ab normality, dehydration 1538: CBC is grossly normal. CMP shows slightly low potassium at normal LFTs with normal lipase and slightly elevated CRP. EKG shows normal QT interval at 435 and sinus bradycardia. We will give droperidol. Monitor patient. 631: Patient's symptoms have resolved. She feels good and would like to go home. Discharged home with return precautions. Patient verbalized understanding of instructions and agreement with plan. Initial ECG Impression Date: Jun 22, 2023 Initial ECG Impression Time: 15:10 Initial ECG Rate: 57 Initial ECG Rhythm: S.James Comment Sinus bradycardia with normal axis. QTc 435 and QTc 430 with normal QRS d uration and normal [place] interval. No evidence of ST elevation [place]. Interpreted by me. Departure Impression Primary Impression: Cyclic vomiting syndrome Additional Impression: Cannabis hyperemesis syndrome concurrent with and due to cannabis abuse Disposition: 01 HOME, SELF-CARE Condition: Improved Departure-Patient Inst. Decision time for Depature: 16:31 [place] [facility] [place] Primary Care Physician Patient Instructions: Cannabis hyperemesis syndrome Add. Discharge Instructions: All discharge instructions reviewed with patient and/or family. Voiced understanding. To decrease or discontinue marijuana use. Follow-up with your doctor for recheck and further evaluation. Return for worse pain, fever, vomiting, weakness, breathing problems or other concerns as needed. Drink plenty of fluids and stick with clear a light diet for the next 24 hours and then advance as tolerated. Scripts Ondansetron (Ondansetron Odt) 4 Mg Tab.rapdis 4 MG PO Q6H PRN for NAUSEA/VOMITING, #12 TAB 0 Refills Prov: AYAAN SOTOMAYOR MD 06/22/23 AYAAN SOTOMAYOR MD Jun 22, 2023 14:54
[2023-06-22 14:59] LABS: BASOPHILS % (AUTO) 1 % (0-10); EOSINOPHILS % (AUTO) 0 % (0-10); HEMATOCRIT 35 % (35-52); HEMOGLOBIN 11.9 g/dL (11.5-16.0); LYMPHOCYTES # (AUTO) 0.2 10^3/uL (1.0-4.0); LYMPHOCYTES % (AUTO) 4 % (12-44); MEAN CORPUSCULAR HEMOGLOBIN 33 pg (25-34); MEAN CORPUSCULAR HGB CONC 34 g/dL (32-36); MEAN CORPUSCULAR VOLUME 97 fL (80-99); MEAN PLATELET VOLUME 10.8 fL (9.0-12.2); MONOCYTES # (AUTO) 0.5 10^3/uL (0.0-1.0); MONOCYTES % (AUTO) 9 % (0-12); NEUTROPHILS # (AUTO) 5.4 10^3/uL (1.8-7.8); NEUTROPHILS % (AUTO) 87 % (42-75); PLATELET COUNT 183 10^3/uL (130-400); WHITE BLOOD COUNT 6.2 10^3/uL (4.3-11.0)
[2023-06-22] MEDS ORDERED: DroPERidol INJECTION 5 MG/2 ML (ED ONLY!) IV ONE (15:00)
[2023-06-22 15:15] LABS: ALBUMIN 3.9 GM/DL (3.2-4.5); POTASSIUM 3.2 MMOL/L (3.6-5.0)
[2023-06-22 15:17] LABS: CALCIUM 8.9 MG/DL (8.5-10.1)
[2023-06-22 15:18] LABS: TOTAL PROTEIN 6.8 GM/DL (6.4-8.2)
[2023-06-22 15:19] LABS: BILIRUBIN,TOTAL 0.3 MG/DL (0.1-1.0)
[2023-06-22 15:22] LABS: CREATININE SERUM 0.77 MG/DL (0.60-1.30)
[2023-06-22 16:08] LABS: ANISOCYTOSIS MODERATE; BAND NEUTROPHILS 3 %; LYMPHOCYTES % (MANUAL) 5 %; MONOCYTES % (MANUAL) 7 %; NEUTROPHILS % (MANUAL) 85 %; PLATELET ESTIMATE ADEQUATE; POIKILOCYTOSIS SLIGHT
[2023-06-22] MEDS ORDERED: ONDA4TAB11 PO (16:36)
[2023-06-22 17:12] VITALS: BP 151/68
== END 2023-06-22 17:16 | disposition home or self-care (01) ==
LOC: EDUNIT# 14:00 → ER 14:01
DX: R11.15 Cyclical vomiting syndrome unrelated to migraine (principal); F12.10 Cannabis abuse, uncomplicated; R10.13 Epigastric pain; F17.210 Nicotine dependence, cigarettes, uncomplicated
CPT/HCPCS: 36415; 80053; 83690; 85007; 85027; 86141; 93005